=== PATIENT | male | born 1965 | race Caucasian/White ===

== ENCOUNTER 2016-11-01 23:18 | Emergency (ER) | payer MEDICARE, OTHER ==
[2016-11-01 23:53] LABS: BASOPHILS % 0.5 (0.0-1.5); EOSINOPHILS % 3.1 % (0.0-6.8); MEAN CORPUSCULAR HEMOGLOBIN 32.3 pg (28.0-34.0); MEAN CORPUSCULAR VOLUME 95.9 fl (80.0-100.0); MONOCYTES % 4.7 % (0.0-11.0); NEUTROPHILS # 2.8 # k/uL (1.4-7.7)
[2016-11-02 00:07] LABS: eGFR (African) > 60; eGFR (Non-African) > 60
--- NOTE | 2016-11-02 00:11 | ED Physician Documentation ---
General Adult - HISTORIAN Historian: patient - HPI Stated Complaint: chest pain Chief Complaint: General Adult Additional Information: CP that feels like a screwdriver stabbing him began last night and then again this mrradha. Precordial. 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 Was sweatier earlier today. Pain is much better at time of exam. Waxed and waned all day. N oSOB or palpitations. Not taking any of his meds since in assisted. - ROS CONST: sweating (see above) - PAST HX Past History: AMI, other (schizophrenia, Bipolar disease) Other History: diabetes Type 2 Surgeries/Procedures: other (back) Allergies/Adverse Reactions: Allergies Allergy/AdvReac Type Severity Reaction Status Date / Time No Known Drug Allergies Allergy Verified 11/01/16 23:41 Home Medications: Ambulatory Orders Medication Instructions Recorded NK [NK] 11/01/16 - SOCIAL HX Smoking History: cigarettes (1/2 PPD since 7 y/o) - FAMILY HX Family History: Yes (F, PGF, wit hheart attacks at 53 y/o) - VITAL SIGNS Vital Signs: Vital Signs Temp Pulse Resp BP Pulse Ox 98.2 F 68 17 135/75 98 11/01/16 23:18 11/01/16 23:44 11/01/16 23:18 11/01/16 23:18 11/01/16 23:44 - REVIEWED ASSESSMENTS Nursing Assessment Reviewed: Yes Vitals Reviewed: Yes Progress - Progress Progress: EKG: sinus arrhythmia. 63 BPM. no ischemic changes. Portable chest History: Chest pain Findings: Calcified left lung granulomas are observed. The lungs are otherwise clear. No pleural effusions are observed. Heart size and pulmonary vascularity are normal. Impression: No acute abnormality. Electronically signed on Nov 02, 2016 12:28:05 AM CDT by: Jamshid Knox Talkative, animated, relaxed throughout stay in ER. ED Results Lab/Radiology - Lab Results Lab Results: Lab Results 11/01/16 23:48 WBC 5.90 K/ul K/ul (4.00-12.00) RBC 4.29 M/ul M/ul (3.90-5.20) Hgb 13.8 g/dL g/dL (12.0-18.0) Hct 41.1 % % (37.0-53.0) MCV 95.9 fl fl (80.0-100.0) MCH 32.3 pg pg (28.0-34.0) MCHC 33.7 g/dL g/dL (30.0-36.0) RDW 13.1 % % (11.3-14.3) Plt Count 207 K/mm3 K/mm3 (130-400) Neut % (Auto) 46.8 % % (39.0-79.0) Lymph % (Auto) 43.2 % % (16.0-50.0) [place] % (Auto) 4.7 % % (0.0-11.0) Eos % (Auto) 3.1 % % (0.0-6.8) Baso % (Auto) 0.5 (0.0-1.5) Neut # 2.8 # k/uL # k/uL (1.4-7.7) Lymph # 2.6 # k/uL # k/uL (0.6-4.0) [place] # 0.3 # k/uL # k/uL (0.0-0.9) Eos # 0.2 # k/uL # k/uL (0.0-0.6) Baso # 0.0 # k/uL # k/uL (0.0-0.5) Reactive Lymphs % 1.7 % % (0.0-5.0) Reactive Lymphs # 0.1 # k/uL # k/uL (0.0-0.8) - Orders Orders: ED Orders Category Date Time Status Continuous EKG monitoring Q1H Care 11/01/16 23:44 Ordered Continuous Pulse Oximetry Q1H Care 11/01/16 23:[address] Saline Lock/IV Now Care 11/01/16 23:45 Ordered CHEST 1 VIEW [RAD] Stat Exams 11/01/16 Ordered CBC/PLATELET/DIFF Routine Lab 11/01/16 Ordered CMP Routine Lab 11/01/16 Ordered TROPONIN I (cTnI) Stat Lab 11/01/16 Ordered URINALYSIS Routine Lab 11/01/16 Ordered Chem Sticks Med 11/01/16 23:44 Ordered 1 each MC CHEMQ PRN EKG WITH COMPARISON Stat Ther 11/01/16 Ordered General Adult Physical Exam - PHYSICAL EXAM GENERAL APPEARANCE: no distress EENT: eye inspection normal, ENT inspection normal (except poor dentition and many absent teeth), pharynx normal (Mallampati 2) NECK: normal inspection, supple RESPIRATORY: no resp distress, breath sounds normal, other (palpation 2 cm left of sternum at 3-4 ICS reproduces his pain) CVS: reg rate & rhythm, heart sounds normal ABDOMEN: soft, normal bowel sounds, no distension, non-tender RECTAL: deferred BACK: normal inspection, no CVA tenderness, other (no midline tenderness) EXTREMITIES: no evidence of injury, no edema NEURO: CN's nml as tested, motor nml, sensation nml Discharge Clincal Impression: non cardiac chest pain Additional Instructions: Follow up with your provider as needed. Take your prescribed medications. Home Medications: Ambulatory Orders NK [NK] 11/01/16 Condition: Good Disposition: 01 HOME, SELF-CARE Decision to Admit: NO Decision Time: 00:30
[2016-11-02 00:55] VITALS: BP 123/66
--- NOTE | 2016-11-02 02:30 | Diagnostic Imaging Report ---
REEMA ARROYO~ [facility] [id number] [facility] [address] [place] [phone] [id number] ~ ~ ~ ~ Report Submission Date: Nov 02, 2016 12:28:05 AM CDT Patient ~ Study Name: ISAAC SCHERER ~ Date: Nov 01, 2016 11:58:14 PM CDT ~ Modality Type: CR Gender: M ~ Description: CHEST : 63 ~ Institution: [facility] Physician: REEMA ARROYO ~ ~ ~ ~ Portable chest History: Chest pain Findings: Calcified left lung granulomas are observed. The lungs are otherwise clear. No pleural effusions are observed. Heart size and pulmonary vascularity are normal. Impression: No acute abnormality. ~ Electronically signed on Nov 02, 2016 12:28:05 AM CDT by: Isaac MARQUES
== END 2016-11-02 00:37 | disposition home or self-care (01) ==
LOC: ED 23:18
DX: R07.89 Other chest pain (principal)
CPT/HCPCS: 71010; 80053; 84484; 85025; 99284; S1016